=== PATIENT | male | born 1970 | race Caucasian/White ===

== ENCOUNTER 2018-09-09 14:04 | Observation (INO) | payer OTHER ==
[~2018-09-09] VITALS: Ht 177.8 cm; Wt 96.2 kg
[2018-09-09] MEDS ORDERED: SODIUM CHLORIDE 0.9% 1000ML 1,000 ML IV STA (14:34)
--- NOTE | 2018-09-09 14:34 | Diagnostic Imaging Report ---
History: Rule out stroke Comparison studies: None Technique: Axial images were obtained from the skull base to the vertex. Coronal and sagittal reconstructions obtained from the axial data. Dose modulation, iterative reconstruction, and/or weight based adjustment of the mA/kV was utilized to reduce the radiation dose to as low as reasonably achievable. Findings: Scalp/skull: No abnormalities. No fractures, blastic or lytic lesions. Extra-axial spaces: No masses. No fluid collections. Brain sulci: Appropriate for age. Ventricles: Normal in size and configuration. No hydrocephalus. Parenchyma: No abnormal densities. No masses, hemorrhage, acute or chronic cortical vascular insults. Sellar/suprasellar region: No abnormalities Craniocervical junction: Patent foramen magnum. No Chiari one malformation. IMPRESSION: No abnormalities . Signed by: DR Nathan Mas M.D. on 09/09/2018 2:31 PM
[2018-09-09 14:46] LABS: BASOPHILS # (AUTO) 0.1 (0.0-0.1); BASOPHILS % 0.6 % (0.0-1.0); EOSINOPHILS # (AUTO) 0.1 (0.0-0.4); EOSINOPHILS % 0.8 % (0.0-6.0); HEMATOCRIT 43.4 % (38.2-49.6); HEMOGLOBIN 15.5 g/dL (14.0-18.0); LYMPHOCYTES # (AUTO) 2.4 (1.0-3.2); LYMPHOCYTES % 28.6 % (18.0-39.1); MEAN CORPUSCULAR HEMOGLOBIN 31.6 pg (28-32); MEAN CORPUSCULAR HGB CONC 35.7 g/dL (31-35); MEAN CORPUSCULAR VOLUME 88.4 fL (81-99); MONOCYTES # (AUTO) 0.5 (0.2-0.8); MONOCYTES % 5.8 % (4.4-11.3); NEUTROPHILS # (AUTO) 5.2 (2.1-6.9); NEUTROPHILS % 63.7 % (38.7-80.0); PLATELET COUNT 247 x10e3/uL (140-360); RED BLOOD COUNT 4.91 x10e6/uL (4.3-5.7); RED CELL DISTRIBUTION WIDTH 14.3 % (11.7-14.4)
[2018-09-09 15:06] LABS: INR 0.88; PROTHROMBIN TIME 12.8 seconds (11.9-14.5)
[2018-09-09 15:07] LABS: PARTIAL THROMBOPLASTIN TIME 27.3 seconds (23.8-35.5)
[2018-09-09 15:16] LABS: ALANINE AMINOTRANSFERASE 26 IU/L (0-55); ALBUMIN 4.1 g/dL (3.5-5.0); ALBUMIN/GLOBULIN RATIO 1.3 (0.8-2.0); ALKALINE PHOSPHATASE 75 IU/L (40-150); ANION GAP 18.9 mmol/L (8-16); BLOOD UREA NITROGEN 11 mg/dL (7-26); BUN/CREATININE RATIO 12 (6-25); CARBON DIOXIDE 20 mmol/L (22-29); CHLORIDE 99 mmol/L (98-107); CREATINE KINASE 77 IU/L (30-200); EST GLOMERULAR FILTRATION RATE > 60 ML/MIN (60-); GLUCOSE 95 mg/dL (74-118); POTASSIUM 3.9 mmol/L (3.5-5.1); SODIUM 134 mmol/L (136-145)
[2018-09-09 15:32] LABS: CLARITY,URINE CLEAR (CLEAR); COLOR,URINE YELLOW (YELLOW); LEUKOCYTE ESTERASE ,URINE NEGATIVE (NEGATIVE); NITRITE,URINE NEGATIVE (NEGATIVE); PROTEIN,URINE DIPSTICK NEGATIVE (NEGATIVE)
[2018-09-09 15:33] LABS: BILIRUBIN,URINE NEGATIVE (NEGATIVE); KETONES,URINE NEGATIVE (NEGATIVE); URINE UROBILINOGEN 0.2 mg/dL (0.2 - 1)
[2018-09-09 15:43] LABS: AMORPHOUS SEDIMENT,URINE FEW (FEW); EPITHELIAL CELLS,URINE RARE /LPF
[2018-09-09] MEDS ORDERED: ONDANSETRON HCL INJ 2MG/ML 2ML 2 MG/ML VIAL IV PRN (16:00)
--- NOTE | 2018-09-09 16:05 | Diagnostic Imaging Report ---
EXAMINATION: CHEST SINGLE (PORTABLE) INDICATION: Status post possible stroke. COMPARISON: None FINDINGS: TUBES and LINES: None. LUNGS: Low lung volumes. There is no evidence of pneumonia or pulmonary edema. Minimal patchy left basilar opacity, likely atelectasis. PLEURA: No pleural effusion or pneumothorax. HEART AND MEDIASTINUM: The cardiomediastinal silhouette is unremarkable. BONES AND SOFT TISSUES: No acute osseous lesion. Soft tissues are unremarkable. UPPER ABDOMEN: No free air under the diaphragm. IMPRESSION: No acute radiographic abnormality. Signed by: Dr. Jese Troncoso MD on 09/09/2018 4:02 PM
[2018-09-09] MEDS: SODIUM CHLORIDE 0.9% 1000ML 1,000 ML IV SCH ×2 (16:19→23:56)
--- OUTSIDE RECORDS SUMMARY | 2018-09-09 16:20 | XMS REPORT ---
Author Author [facility] Address Unknown Phone Unavailable Care Team Providers Care Production Foreman Name Role Phone Calli RAI Unavailable Unavailable Problems This patient has no known problems. Allergies, Adverse Reactions, Alerts This patient has no known allergies or adverse reactions. Medications This patient has no known medications. Results Test Description Test Time Test Comments Text Results Atomic Results Result Comments CHEST SINGLE (PORTABLE) 2018-09-09 16:00:00 [place] [address] Patient Name: AMY MORA MR #: [id number] : 1970 Age/Sex: 48/M Req #: [id number] Adm Physician: Ordered by: RENETTA LARIOS TRASH MAN Report #: [id number] Location: ER Room/Bed: Procedure: [id number] DX/CHEST SINGLE (PORTABLE) Exam Date: 09/09/18 Exam Time: 1511 REPORT STATUS: Signed EXAMINATION: CHEST SINGLE (PORTABLE) INDICATION: Status post possible stroke. COMPARISON: None FINDINGS: TUBES and LINES: None. LUNGS: Low lung volumes. There is no evidence of pneumonia or pulmonary edema. Minimal patchy left basilar opacity, likely atelectasis. PLEURA: No pleural effusion or pneumothorax. HEART AND MEDIASTINUM: The cardiomediastinal silhouette is unremarkable. BONES AND SOFT TISSUES: No acute osseous lesion. Soft tissues are unremarkable. UPPER ABDOMEN: No free air under the diaphragm. IMPRESSION: No acute radiographic abnormality. Signed by: Dr. Milena Platt MD on 09/09/2018 4:02 PM Dictated By: MILENA PLATT MD 01 Transcribed By: GRETTA on 09/09/181601 COPY TO: RENETTA LARIOS NP CT BRAIN WO 2018-09-09 14:29:00 [place] [address] Patient Name: AMY MORA MR #: [id number] : 1970 Age/Sex: 48/M Req #: [id number] Adm Physician: Ordered by: ARNOL RAI MD Report #: [id number] Location: ER Room/Bed: Procedure: [id number] CT/CT BRAIN WO Exam Date: 09/09/18 Exam Time: 1400 REPORT STATUS: Signed History: Rule out stroke Comparison studies: None Technique: Axial images were obtained from the skull base to the vertex. Coronal and sagittal reconstructions obtained from the axial data. Dose modulation, iterative reconstruction, and/or weight based adjustment of the mA/kV was utilized to reduce the radiation dose to as low as reasonably achievable. Findings: Scalp/skull: No abnormalities. No fractures, blastic or lytic lesions. Extra-axial spaces: No masses. No fluid collections. Brain sulci: Appropriate for age. Ventricles: Normal in size and configuration. No hydrocephalus. Parenchyma: No abnormal densities. No masses, hemorrhage, acute or chronic cortical vascular insults. Sellar/suprasellar region: No abnormalities Craniocervical junction: Patent foramen magnum. No Chiari one malformation. IMPRESSION: No abnormalities . Signed by: DR Nathan Mas M.D. on 09/09/2018 2:31 PM Dictated By: NATHAN MAGUIRE MD [id number] Transcribed By: GRETTA on 09/09/18 1431 COPY TO: ARNOL RAI MD
[2018-09-09 16:42] LABS: CHOL/HDL RATIO 3.5 (3.9-4.7)
[2018-09-09] MEDS ORDERED: ACETAMINOPHEN 325 MG TAB PO ONE (17:45)
[2018-09-09 18:09] VITALS: BP 143/74
[2018-09-09 18:21] VITALS: BP 143/74
[2018-09-09 18:28] VITALS: BP 143/74
--- NOTE | 2018-09-09 18:38 | NUR ---
patient received from er via stretcher. see admit assess. no deficits or signs of stroke present on admission. ns @ 125cc/hr. family at BS. vitals stable with no distress at this time. Dr Sequeira here to see patient.
--- NOTE | 2018-09-09 19:10 | NUR ---
Report received and walking rounds complete. Pt resting in bed and in no apparent distress. All safety measures ensured and pt call jay near.
[2018-09-09 20:00] VITALS: BP_SYST 140; BP_SYST 143; BP_DIAS 74; BP_DIAS 84
--- NOTE | 2018-09-09 21:52 | NUR ---
Pt c/o tingling in hands and feet. Pt is very concern and visibly upset worrying about rather he is going to have an actually stoke. Pt was assessed and performed neuro checks, and vitals taken, which were normal. Explained to about CVA/TIA and informed pt that a Neuro MD has been consult to see him. Advised pt to inform me of any other symptoms he may experience and will continue to monitor pt.
--- NOTE | 2018-09-09 21:52 | NUR ---
Pt also complained of feeling nauseous. Zofran 4mg IV given, pt tolerated well.
[2018-09-10] VITALS (7 sets, daily range): BP systolic 129–139; BP diastolic 62–80
[2018-09-10 04:55] LABS: BASOPHILS # (AUTO) 0.1 (0.0-0.1); BASOPHILS % 0.9 % (0.0-1.0); EOSINOPHILS # (AUTO) 0.3 (0.0-0.4); EOSINOPHILS % 3.3 % (0.0-6.0); HEMOGLOBIN 14.4 g/dL (14.0-18.0); LYMPHOCYTES # (AUTO) 3.3 (1.0-3.2); MEAN CORPUSCULAR HEMOGLOBIN 30.9 pg (28-32); MEAN CORPUSCULAR HGB CONC 34.3 g/dL (31-35); MEAN CORPUSCULAR VOLUME 90.1 fL (81-99); MONOCYTES # (AUTO) 0.5 (0.2-0.8); MONOCYTES % 6.6 % (4.4-11.3); NEUTROPHILS # (AUTO) 3.8 (2.1-6.9); NEUTROPHILS % 47.9 % (38.7-80.0); PLATELET COUNT 211 x10e3/uL (140-360); RED BLOOD COUNT 4.66 x10e6/uL (4.3-5.7); RED CELL DISTRIBUTION WIDTH 14.4 % (11.7-14.4)
[2018-09-10 05:17] LABS: ANION GAP 14.3 mmol/L (8-16); BLOOD UREA NITROGEN 10 mg/dL (7-26); BUN/CREATININE RATIO 11 (6-25); CALCIUM 8.9 mg/dL (8.4-10.2); CARBON DIOXIDE 26 mmol/L (22-29); CHLORIDE 102 mmol/L (98-107); CREATININE, SERUM 0.93 mg/dL (0.72-1.25); EST GLOMERULAR FILTRATION RATE > 60 ML/MIN (60-); GLUCOSE 94 mg/dL (74-118); POTASSIUM 4.3 mmol/L (3.5-5.1); SODIUM 138 mmol/L (136-145)
--- NOTE | 2018-09-10 06:54 | Diagnostic Imaging Report ---
CHEST SINGLE (PORTABLE), 09/10/2018 7:00 AM Technique: CHEST SINGLE (PORTABLE) Comparison: Previous day Clinical history:. Neurological status change Findings: Low lung volumes. Stable portable appearance of the heart, mediastinum, lungs and pleural spaces. Impression: 1. Lines/Tubes: None 2. No acute abnormality. Signed by: Dr Cheyenne Watson MD on 09/10/2018 6:51 AM
--- NOTE | 2018-09-10 07:10 | NUR ---
Report given to day shift nurse and walking rounds complete.
--- NOTE | 2018-09-10 07:45 | NUR ---
patient sitting up in bed, denies any pain no distress noted
[2018-09-10] MEDS: SODIUM CHLORIDE 0.9% 1000ML 1,000 ML IV SCH (08:10)
[2018-09-10] MEDS ORDERED: DOXYCYCLINE HY100 MG PO (08:14)
[2018-09-10] MEDS ORDERED: LEVITRA10 MG PO (08:14)
[2018-09-10] MEDS ORDERED: ADDERALL 30 MG30 MG PO (08:14)
[2018-09-10] MEDS ORDERED: ATORVASTATIN CA20 MG PO (08:14)
[2018-09-10] MEDS ORDERED: VITAMIN D1000 UNI1 PO (08:14)
[2018-09-10] MEDS ORDERED: PANTOPRAZOLE SO40 MG PO (08:14)
[2018-09-10] MEDS ORDERED: ZOLOFT50 MG PO (08:14)
[2018-09-10] MEDS: SERTRALINE HCL 50 MG TAB PO SCH (11:00)
[2018-09-10] MEDS: PANTOPRAZOLE SOD 40 MG TABEC PO SCH (11:00)
[2018-09-10] MEDS: CHOLECALCIFEROL 1,000 UNIT TAB PO SCH (11:00)
--- NOTE | 2018-09-10 11:19 | NUR ---
patient off the unit for MRI, stable
[2018-09-10] MEDS: DOXYCYCLINE HYCLATE TABLET 100 MG TAB PO SCH ×2 (12:00→21:07)
--- NOTE | 2018-09-10 13:56 | Diagnostic Imaging Report ---
EXAMINATION: MRI of the brain without contrast. HISTORY: Left-sided weakness, CVA, tingling sensation and numbness in the upper extremities/hands, slurred speech with left-sided drooping since yesterday. TIA COMPARISON: Head CT on 09/09/2018 TECHNIQUE: Sagittal T2; axial DWI, T2, FLAIR, T1-IR, T2 gradient echo; coronal FLAIR. IMAGE QUALITY: Adequate. FINDINGS: Parenchyma: 1. No abnormal signal intensity 2. No mass, hemorrhage, acute or chronic infarcts. Skull: Unremarkable. Vessels: Expected flow voids present in the major arteries and dural sinuses. Extra-axial spaces: No abnormal signal intensity or mass effect. Brain volume: Within normal limits for age. Ventricles: No hydrocephalus or displacement. Foramen magnum: Unremarkable. Sella: Unremarkable. Paranasal / mastoid sinuses: No significant inflammatory disease. IMPRESSION: No intracranial abnormalities, particularly no acute or chronic infarcts. Signed by: Dr. Carly Callahan M.D. on 09/10/2018 1:52 PM
--- NOTE | 2018-09-10 18:20 | NUR ---
patient resting in bed, Dr Levy had rounds, not in any distress noted
--- NOTE | 2018-09-10 19:03 | Consultation ---
DATE OF CONSULTATION: September 10, 2018 NEUROLOGY CONSULT NOTE HISTORY OF PRESENT ILLNESS: Mr. Walters is a 48-year-old right hand dominant man with past medical history significant for hyperlipidemia/dyslipidemia and tobacco use, admitted to [facility] on September 09, 2018, with a probable transient ischemic attack. In the early childhood associate on September 09, 2018, the patient experienced a sudden onset of a cold sensation over the fingertips of the left hand as well as a bluish purplish discoloration at the distal interphalangeal joints of the left hand. These symptoms persisted for a few minutes, then spontaneously resolved. At approximately noon, on September 09, 2018, the above described symptoms recurred, persisted for a few minutes, then spontaneously resolved. At 1354 on September 09, 2018, patient once again experienced a recurrence of the above described symptoms. However, in addition to these symptoms, the patient noted tingling of the left arm, slurred speech, possible expressive aphasia, as well as left facial droop. Mr. Walters informed a coworker of his symptoms and asked to be brought to the nearest emergency center for further evaluation. Upon arrival in the emergency center at [facility], the patient had a temperature of 100.2 degrees Fahrenheit, a blood pressure of 138/99 mmHg, and a pulse of 99 beats per minute. Upon initial neurological examination, Mr. Walters was noted to have dysarthria as well as left hemiparesis affecting the face and arm. Diminished sensation over the left side of the face and left arm was noted as well; however, these symptoms significantly improved while the patient was in the emergency center. According to the patient, the above described symptoms persisted for approximately 60 minutes prior to spontaneous resolution. While in the emergency center, a CT of the brain without contrast was performed. This study did not show evidence of recent large territorial ischemia or hemorrhage. There was no hyperdensity seen in any of the major intracranial blood vessels. Mr. Walters was then admitted to [facility] under observation status for further evaluation and treatment of a probable transient ischemic attack. Mr. Walters does not report experiencing similar symptoms previously. The patient does not take antiplatelet or anticoagulant medication at home. REVIEW OF SYSTEMS: Palpitations, dysarthria, possible expressive aphasia, left facial weakness, numbness over the left side of the face and left arm, cold sensation over the fingertips of the left hand, bluish/purplish discoloration of the proximal interphalangeal joints of left hand. Otherwise, the 12 point review of systems is negative. PAST MEDICAL HISTORY: Hyperlipidemia/dyslipidemia, Raynaud's phenomenon, gastroesophageal reflux disease, anxiety disorder, attention deficit disorder, headaches, diverticulitis, and questionable peripheral vascular disease. PAST SURGICAL HISTORY: Esophagogastroduodenoscopy/colonoscopy in September 2017, appendectomy, right hand reconstruction. PAST HOSPITALIZATIONS: Surgeries/procedures as listed, diverticulitis. FAMILY MEDICAL HISTORY: Mr. Walters is adopted. He does not know any of his family medical history. SOCIAL HISTORY: The patient is . He works as a power generating plant operator. Mr. Walters endorses tobacco use. He has smoked cigarettes or cigars for approximately 20+ years. The patient reports daily alcohol use. He does not report current or prior recreational drug use. HOME MEDICATIONS: Adderall 30 mg by mouth daily, atorvastatin 20 mg by mouth at bedtime daily, vitamin D3 of 5000 units by mouth daily, doxycycline 100 mg by mouth twice daily, Protonix 40 mg by mouth daily, sertraline 150 mg by mouth daily (not taking), Levitra 10 mg by mouth as needed. ALLERGIES: NO KNOWN DRUG ALLERGIES. NO KNOWN FOOD ALLERGIES. NO KNOWN ALLERGIES TO LATEX. PATIENT DOES HAVE A DOCUMENTED IODINE ALLERGY. PHYSICAL EXAMINATION VITAL SIGNS: Height 70 inches, weight 213 pounds, BMI 30.6 kg per meter squared. Blood pressure 139/62 mmHg, pulse 83 beats per minute, respiratory rate 18 breaths per minute, oxygen saturation 96% on room air. GENERAL: The patient is awake and alert, does not appear distressed. Overweight. HEENT: Normocephalic, atraumatic. Pupils are equal, round, and reactive to light. Moist mucous membranes. NECK: Supple. No appreciable thyromegaly. No appreciable carotid bruits. CARDIOVASCULAR: S1, S2, regular rate and rhythm. No murmurs, rubs, or gallops. RESPIRATORY: Clear to auscultation bilaterally. No wheezes, rhonchi, or rales. EXTREMITIES: The skin is warm and dry. No clubbing, cyanosis, or edema. The posterior tibial and dorsalis pedis pulses are 2+ and symmetric. SKIN: No rashes or lesions. NEUROLOGIC Memory/Attention: The patient is awake and alert, oriented to person, place, time, and situation. Cranial Nerves: Cranial nerve I - Not tested. Cranial nerve II, III, IV, and - Pupils are equal and round, react briskly to light (from 4 mm to 2 mm). Extraocular movements intact. No nystagmus. Cranial nerve V - Sensation to light touch and pinprick is intact in the bilateral V1 through V3 distributions. Strength of the temporalis and masseter muscles is within normal limits. Cranial nerve VII - The face is symmetric as are all facial movements. Strength is within normal limits. Cranial nerve VIII - Hearing is intact to finger rub bilaterally. Cranial nerve IX, X - The soft palate elevates equally and symmetrically. Cranial nerve XI - Normal strength of the bilateral sternocleidomastoid and trapezius muscles. Cranial nerve XII - The tongue protrudes midline and moves symmetrically from side to side. Strength: Bulk is normal. Strength is 5/5 in the bilateral deltoids, biceps, triceps, wrist flexors and extensors, finger flexors and extensors, intrinsic hand muscles, hip flexors, knee flexors and extensors, ankle dorsiflexion and plantar flexion, and intrinsic foot muscles. Tone is normal. DTRs: Deep tendon reflexes are 2+ and symmetric at the triceps, biceps, brachioradialis, patellas, and Achilles. Plantar responses are flexor bilaterally. Sensation: Sensation is intact to light touch and pinprick in both arms and both legs. Cerebellar: Dchjad-upzo-rqnmgw and heel-chavarria movements are intact without dysmetria or other impairment. Gait: Deferred. Speech: Spontaneous speech is normal without appreciable dysarthria or aphasia. Repetition is intact. Involuntary Movements: None. Pronator Drift: None. LABORATORY DATA: The most recent basic metabolic panel is unremarkable. A liver function profile collected on September 09, 2018 is unremarkable. Cardiac enzymes are negative x1. Lactic acid 24.3. Total cholesterol 184, triglycerides 115, LDL cholesterol 108, HDL cholesterol 53. The CBC with differential and platelets is significant for white blood cell count of 7.97 with a right shift, 47.9% neutrophils, 41.0% lymphocytes, 6.6% monocytes, 3.3% eosinophils, and 0.9% basophils. The hemoglobin and hematocrit are 14.4 and 42.0, respectively. The platelet count is 211. The coagulation profile is within normal limits. A urinalysis is significant only for a specific gravity of 1.005. Blood cultures collected on September 09, 2018 reveals no growth after 24 hours. DIAGNOSTIC STUDIES: CT of the brain without contrast, September 09, 2018: On my review, there is no evidence of recent large territorial ischemia, hemorrhage, mass, or mass effect. Cerebral volumes are appropriate for age. There are no findings suggestive of chronic small vessel ischemic disease. Chest x-ray, September 09, 2018: No acute radiographic abnormality. Electrocardiogram, September 10, 2018: Sinus rhythm at 83 beats per minute with occasional premature ventricular complexes. Echocardiogram, September 10, 2018: Ejection fraction 65%. Concentric left ventricular hypertrophy. Bilateral carotid artery ultrasound with Doppler, September 10, 2018: Results pending. MRI of the brain without contrast, September 10, 2018: On my review, there is no evidence of recent or remote large territorial ischemia, hemorrhage, mass, or mass effect. Cerebral volumes are appropriate for age. There are no findings compatible with chronic small vessel ischemic disease. Chest x-ray, September 10, 2018: 1. Lines/tubes: None. 2. No acute abnormality. ASSESSMENT AND PLAN: Mr. Walters is a 48-year-old right hand dominant man with past medical history significant for hyperlipidemia/dyslipidemia and tobacco use, admitted to [facility] on September 09, 2018 with a transient ischemic attack. At present, the patient's neurological examination is nonfocal. His laboratory data and other diagnostic studies have been reviewed and are documented above. RECOMMENDATIONS 1. A hemoglobin A1c will be ordered to complete a stroke evaluation. 2. Follow up the results of the bilateral carotid artery ultrasound with Doppler. 3. Treatment with aspirin 81 mg by mouth daily for stroke prophylaxis will be prescribed. 4. The patient's goal blood pressure is less than 140/90 mmHg. At present, the patient's blood pressures are at goal. Monitor vital signs per unit protocol. 5. The patient's goal total cholesterol is less than 200 with a LDL of less than 70. Mr. Walters's LDL is approximately 40 above goal. The dose of his home medication of Lipitor will be increased to 40 mg by mouth at bedtime daily. 6. The patient's goal hemoglobin A1c is less than 7.0. Follow up the results of the hemoglobin A1c. Tight glycemic control is recommended while the patient is in the hospital. 7. Speech and physical therapy consultations will be deferred as the patient has no current neurological deficits. 8. GI prophylaxis with Protonix 40 mg by mouth daily. DVT prophylaxis with Lovenox 40 mg subcutaneously daily. 9. Smoking cessation counseling was provided to the patient. 10. Defer treatment of the remaining medical comorbidities to the primary and other services following the patient. Thank you for this consultation. I will continue to follow the patient while he remains in the hospital. TIME SPENT: 70 minutes. Job#: [id number] NENAU MTDElvi
[2018-09-10] MEDS ORDERED: ATORVASTATIN 20 MG TAB PO SCH ×2 (21:00)
[2018-09-10] MEDS ORDERED: ATORVASTATIN 40 MG TAB PO SCH (21:00)
--- NOTE | 2018-09-10 21:50 | NUR ---
Patient ambulating in the kahn, no distress noted. He denies pain. Call light within reach and told to call for assistance.
[2018-09-11 00:50] VITALS: BP 105/56
--- NOTE | 2018-09-11 01:20 | NUR ---
Patient is asleep, easy to arouse, no distress observed.
[2018-09-11 04:30] VITALS: BP 105/71
--- NOTE | 2018-09-11 05:59 | NUR ---
Patient is asleep, no distress noted.
--- NOTE | 2018-09-11 07:22 | NUR ---
patient resting in bed, AAOx3, Denies any pain this time, not in any distress, call light in reach, encouraged to call for any assistance
[2018-09-11 07:45] VITALS: BP 124/70
[2018-09-11] MEDS: SODIUM CHLORIDE 0.9% 1000ML 1,000 ML IV SCH (07:56)
[2018-09-11] MEDS: PANTOPRAZOLE SOD 40 MG TABEC PO SCH (08:28)
[2018-09-11] MEDS: SERTRALINE HCL 50 MG TAB PO SCH (08:29)
[2018-09-11] MEDS: CHOLECALCIFEROL 1,000 UNIT TAB PO SCH (08:29)
[2018-09-11] MEDS: DOXYCYCLINE HYCLATE TABLET 100 MG TAB PO SCH (08:29)
[2018-09-11] MEDS ORDERED: D AMPHET PO SCH (09:00)
[2018-09-11] MEDS ORDERED: AMPHET ASP PO SCH (09:00)
[2018-09-11] MEDS ORDERED: ASPIRIN 81 MG ENTERIC COATED PO SCH (09:00)
[2018-09-11] MEDS ORDERED: AMPHET PO SCH (09:00)
[2018-09-11 10:18] VITALS: BP 124/70
[2018-09-11 11:54] VITALS: BP 120/79
[2018-09-11] MEDS ORDERED: ASPIR 8181 MG PO (12:12)
--- NOTE | 2018-09-11 12:27 | NUR ---
Dr Levy and DR Ledezma had rounds patient discharged home, Alert with no distress, prescription given, patient aware about f/up with Dr Levy, IV canula removed with tip intact, no ss of infiltration noted, refused wheelchair , escorted to walk to front lobby, denies any pain, no distress noted.
--- NOTE | 2018-09-11 12:58 | Discharge Summary ---
ADMITTING DIAGNOSES 1. Transient ischemic attack. 2. Hyperlipidemia. 3. Tobacco abuse. DISCHARGE DIAGNOSES 1. Transient ischemic attack, resolved. 2. Hyperlipidemia. 3. Tobacco abuse. HOSPITAL COURSE: This is a 48-year-old white male who was initially admitted to [facility] with diagnosis of transient ischemic attack. The patient underwent a CT of the brain on admission, which was unremarkable. The patient subsequently underwent MRI of the brain that did not reveal any acute or chronic infracts. The patient was seen by a neurologist, namely Dr. Wendy Levy, who stated that the patient did have transient ischemic attack. The patient's hospitalization was unremarkable. During this hospitalization, he was found to have an LDL cholesterol of 108 mg/dL. He does have a history of hyperlipidemia and he does take atorvastatin 20 mg at night at home. The neurology recommended that patient start aspirin therapy 81 mg daily and that he increase his atorvastatin from 20 to 40 mg every night. Tobacco cessation is highly recommended to the patient. CONDITION ON DISCHARGE: Stable. DISCHARGE MEDICATIONS 1. Adderall 40 mg a day. 2. Atorvastatin 40 mg q.h.s. 3. Vitamin D3 5000 units daily. 4. Pantoprazole 40 mg daily. 5. Sertraline 150 mg daily. 6. Levitra 10 mg once daily as needed. FOLLOWUP INSTRUCTIONS: The patient is instructed to followup with his primary care physician, namely Dr. López within [address] Wendy Levy in 2 weeks. Tobacco cessation is highly recommended to the patient. ALEXANDRA LABOY MD Job#: [id number] SONIDO
[2018-09-11] MEDS ORDERED: ENOXAPARIN SOD INJ 40 MG/0.4 ML SYR SC SCH (17:00)
== END 2018-09-11 12:28 | disposition home or self-care (01) ==
LOC: ER 14:04 → ERHOLD 16:15 → IMCU 17:58
DX: G45.9 Transient cerebral ischemic attack, unspecified (principal); E78.00 Pure hypercholesterolemia, unspecified; Z91.048 Other nonmedicinal substance allergy status; Z82.49 Family history of ischemic heart disease and other diseases of the circulatory system; F98.8 Other specified behavioral and emotional disorders with onset usually occurring in childhood and adolescence; Z72.0 Tobacco use; I73.00 Raynaud's syndrome without gangrene
CPT/HCPCS: 36415 ×2; 70450; 70551; 71045 ×2; 80048; 80053; 80061; 81001; 82550; 82553; 82948; 83036; 83605; 84484; 85025 ×2; 85610; 85730; 87040; 93005 ×2; 93306; 93880; 96360; 96361; 99284; 99285; G0378 ×3; J2405; J7030 ×2; S0164

== ENCOUNTER → 2018-09-14 | Emergency (ER) | payer OTHER ==
[~2018-09-14] MED LIST: ADDERALL 30 MG30 MG PO; ASPIR 8181 MG PO; ATORVASTATIN CA20 MG PO; DOXYCYCLINE HY100 MG PO; LEVITRA10 MG PO; PANTOPRAZOLE SO40 MG PO; VITAMIN D1000 UNI1 PO; ZOLOFT50 MG PO
== END | disposition left against medical advice (07) ==
LOC: ER 17:58
DX: R69 Illness, unspecified (principal)

== ENCOUNTER 2020-11-13 20:34 | Emergency (ER) | payer OTHER ==
[~2020-11-13] VITALS: Ht 177.8 cm; Wt 96.2 kg
[2020-11-13] MEDS ORDERED: ONDANSETRON HCL INJ 2MG/ML 2ML 2 MG/ML VIAL IV STA (20:50)
[2020-11-13] MEDS ORDERED: MORPHINE SULFATE INJ 4 MG/ML INJ 1ML IV PRN (21:00)
[2020-11-13] MEDS ORDERED: SODIUM CHLORIDE 0.9% 1000ML 1,000 ML IV SCH (21:00)
[2020-11-13] MEDS ORDERED: DIATRIZOATE MEGL/DIATRIZOA SOD 30 ML BTL PO ONE (21:07)
[2020-11-13 21:15] LABS: BASOPHILS # (AUTO) 0.1 (0.0-0.1); BASOPHILS % 0.9 % (0.0-1.0); EOSINOPHILS # (AUTO) 0.2 (0.0-0.4); EOSINOPHILS % 2.2 % (0.0-6.0); HEMATOCRIT 47.1 % (38.2-49.6); HEMOGLOBIN 16.4 g/dL (14.0-18.0); LYMPHOCYTES % 29.2 % (18.0-39.1); MEAN CORPUSCULAR HEMOGLOBIN 31.4 pg (28-32); MEAN CORPUSCULAR HGB CONC 34.8 g/dL (31-35); MEAN CORPUSCULAR VOLUME 90.1 fL (81-99); MONOCYTES # (AUTO) 0.9 (0.2-0.8); MONOCYTES % 8.6 % (4.4-11.3); NEUTROPHILS % 58.6 % (38.7-80.0); PLATELET COUNT 239 x10e3/uL (140-360); RED BLOOD COUNT 5.23 x10e6/uL (4.3-5.7); RED CELL DISTRIBUTION WIDTH 14.1 % (11.7-14.4)
[2020-11-13] MEDS ORDERED: METHYLPREDNISOLONE SOD SUCC 125 MG/2ML VIAL IV ONE (21:30)
[2020-11-13] MEDS ORDERED: DIPHENHYDRAMINE HCL INJ 50 MG/ML VIAL IV ONE (21:30)
[2020-11-13 21:33] LABS: ALANINE AMINOTRANSFERASE 31 IU/L (0-55); ALKALINE PHOSPHATASE 85 IU/L (40-150); BLOOD UREA NITROGEN 13 mg/dL (7-26); BUN/CREATININE RATIO 15 (6-25); CALCIUM 8.7 mg/dL (8.4-10.2); CARBON DIOXIDE 22 mmol/L (22-29); CHLORIDE 98 mmol/L (98-107); CREATINE KINASE 198 IU/L (30-200); CREATININE, SERUM 0.87 mg/dL (0.72-1.25); EST GLOMERULAR FILTRATION RATE > 60 ML/MIN (60-); GLUCOSE 90 mg/dL (74-118); SODIUM 133 mmol/L (136-145)
[2020-11-13] MEDS ORDERED: SODIUM CHLORIDE 0.9% 50ML 50 ML ONE (21:56)
[2020-11-13] MEDS ORDERED: IOPAMIDOL 370 MG/ML 200 ML INFUS..BTL INJ ONE (21:56)
[2020-11-13 23:04] LABS: AMPHETAMINES SCREEN,URINE POSITIVE (NEGATIVE); BENZODIAZEPINES SCREEN,URINE NEGATIVE (NEGATIVE); CLARITY,URINE CLEAR (CLEAR); COLOR,URINE YELLOW (YELLOW); KETONES,URINE NEGATIVE (NEGATIVE); LEUKOCYTE ESTERASE ,URINE NEGATIVE (NEGATIVE); NITRITE,URINE NEGATIVE (NEGATIVE); PHENCYCLIDINE SCREEN,URINE NEGATIVE (NEGATIVE); PROTEIN,URINE DIPSTICK NEGATIVE (NEGATIVE); URINE UROBILINOGEN 0.2 mg/dL (0.2 - 1)
[2020-11-13 23:07] LABS: BACTERIA,URINE RARE /HPF; EPITHELIAL CELLS,URINE RARE /LPF; RBC,URINE 0-5 /HPF (0-5); WBC,URINE (MAN) 0-5 /HPF (0-5)
[2020-11-13] MEDS ORDERED: KETOROLAC TROMETHAMINE 30 MG/ML VIAL IV STA (23:34)
[2020-11-14] MEDS ORDERED: PANTOPRAZOLE SO40 MG PO (00:34)
[2020-11-14] MEDS ORDERED: CIPRO250 MG PO (00:34)
[2020-11-14] MEDS ORDERED: DICYCLOMINE HCL10 MG PO (00:34)
[2020-11-14] MEDS ORDERED: FLAGYL500 MG PO (00:34)
[2020-11-14] MEDS ORDERED: ZOFRAN4 MG SL (00:34)
[2020-11-14] MEDS ORDERED: ULTRAM 50MG50 MG PO (00:34)
[2020-11-14] MEDS ORDERED: HYDROCODONE/APAP 10MG-325MG TAB PO ONE (00:45)
[2020-11-14 01:28] VITALS: BP 145/92
== END 2020-11-14 01:32 | disposition home or self-care (01) ==
LOC: ER 20:41
DX: R10.32 Left lower quadrant pain (principal); R19.7 Diarrhea, unspecified; K57.30 Diverticulosis of large intestine without perforation or abscess without bleeding; I77.811 Abdominal aortic ectasia; G40.909 Epilepsy, unspecified, not intractable, without status epilepticus; K21.9 Gastro-esophageal reflux disease without esophagitis; K76.0 Fatty (change of) liver, not elsewhere classified; E78.5 Hyperlipidemia, unspecified; F98.8 Other specified behavioral and emotional disorders with onset usually occurring in childhood and adolescence
CPT/HCPCS: 36415; 74177; 80053; 80307; 81001; 82550; 82553; 83690; 84484; 85025; 99284; J1200; J1885; J2270; J2405; J2930; J7030; Q9967

== ENCOUNTER 2021-08-14 22:42 | Observation (INO) | payer OTHER ==
[~2021-08-14] VITALS: Ht 177.8 cm; Wt 96.2 kg
[~2021-08-14 22:42] MED LIST changes: +CIPRO250 MG PO; +DICYCLOMINE HCL10 MG PO; +FLAGYL500 MG PO; +ULTRAM 50MG50 MG PO; +ZOFRAN4 MG SL
[2021-08-14 23:23] LABS: BASOPHILS # (AUTO) 0.1 (0.0-0.1); BASOPHILS % 0.7 % (0.0-1.0); EOSINOPHILS # (AUTO) 0.5 (0.0-0.4); EOSINOPHILS % 3.2 % (0.0-6.0); HEMATOCRIT 40.5 % (38.2-49.6); HEMOGLOBIN 13.5 g/dL (14.0-18.0); LYMPHOCYTES # (AUTO) 4.3 (1.0-3.2); LYMPHOCYTES % 28.5 % (18.0-39.1); MEAN CORPUSCULAR HGB CONC 33.3 g/dL (31-35); MEAN CORPUSCULAR VOLUME 92.9 fL (81-99); MONOCYTES % 6.6 % (4.4-11.3); NEUTROPHILS % 60.5 % (38.7-80.0); PLATELET COUNT 279 x10e3/uL (140-360); RED BLOOD COUNT 4.36 x10e6/uL (4.3-5.7); RED CELL DISTRIBUTION WIDTH 14.2 % (11.7-14.4)
[2021-08-14 23:36] LABS: ALANINE AMINOTRANSFERASE 21 IU/L (0-55); ALBUMIN 3.5 g/dL (3.5-5.0); ALKALINE PHOSPHATASE 69 IU/L (40-150); ANION GAP 16.5 mmol/L (8-16); BLOOD UREA NITROGEN 16 mg/dL (7-26); BUN/CREATININE RATIO 19 (6-25); CALCIUM 8.8 mg/dL (8.4-10.2); CARBON DIOXIDE 21 mmol/L (22-29); CHLORIDE 104 mmol/L (98-107); CREATINE KINASE 65 IU/L (30-200); CREATININE, SERUM 0.86 mg/dL (0.72-1.25); EST GLOMERULAR FILTRATION RATE 94 ML/MIN (60-); GLUCOSE 112 mg/dL (74-118); POTASSIUM 3.5 mmol/L (3.5-5.1); SODIUM 138 mmol/L (136-145)
[2021-08-15 00:29] LABS: AMPHETAMINES SCREEN,URINE NEGATIVE (NEGATIVE); PHENCYCLIDINE SCREEN,URINE NEGATIVE (NEGATIVE)
[2021-08-15 00:30] LABS: BENZODIAZEPINES SCREEN,URINE NEGATIVE (NEGATIVE)
[2021-08-15] MEDS ORDERED: ONDANSETRON HCL INJ 2MG/ML 2ML 2 MG/ML VIAL IV PRN (00:45)
[2021-08-15] MEDS ORDERED: Morphine 4mg Syringe 4 MG/ML INJ IV PRN (00:45)
[2021-08-15 07:00] VITALS: BP 117/79
[2021-08-15 07:23] LABS: CREATINE KINASE 61 IU/L (30-200)
[2021-08-15 08:20] VITALS: BP 117/79
[2021-08-15 09:00] VITALS: BP 117/79
[2021-08-15 10:30] VITALS: BP 114/79
[2021-08-15] MEDS ORDERED: SODIUM CHLORIDE 0.9% 1000ML 1,000 ML IV SCH ×3 (11:45→13:00)
[2021-08-15 12:00] VITALS: BP 122/84
[2021-08-15] MEDS ORDERED: HYDROCORTISONE SOD SUCCINATE 100 MG VIAL ONE (12:13)
[2021-08-15] MEDS ORDERED: IOPAMIDOL 370 MG/ML 200 ML INFUS..BTL INJ ONE (12:15)
[2021-08-15] MEDS ORDERED: SODIUM CHLORIDE 0.9% 1000ML 1,000 ML ONE (12:15)
[2021-08-15] MEDS ORDERED: HEPARIN SOD/SOD CHLORIDE 2,000 ML ONE (12:15)
[2021-08-15] MEDS ORDERED: FENTANYL CITRATE/PF 100MCG/2 ML INJ ONE (12:15)
[2021-08-15] MEDS ORDERED: LIDOCAINE HCL 2% LOCAL 20 ML VIAL ONE (12:15)
[2021-08-15] MEDS ORDERED: MIDAZOLAM HCL 2 MG/2 ML VIAL ONE (12:15)
[2021-08-15 14:55] LABS: CREATINE KINASE MB 1.2 ng/mL (0-5.0)
[2021-08-15 16:00] VITALS: BP 119/76
[2021-08-15] MEDS ORDERED: ONDANSETRON HCL 4 MG ORAL DISINTEGRATING TAB PO PRN (18:45)
== END 2021-08-15 22:33 | disposition home or self-care (01) ==
LOC: ER 22:47 → ERHOLD 08-15 00:49 → MED/SURG2 08-15 10:32
PROVIDERS: ADMIT Family Medicine; ATTEND Family Medicine
DX: I20.0 Unstable angina (principal); Z91.041 Radiographic dye allergy status; Z91.048 Other nonmedicinal substance allergy status; I10 Essential (primary) hypertension; E78.5 Hyperlipidemia, unspecified; G40.909 Epilepsy, unspecified, not intractable, without status epilepticus; Z72.0 Tobacco use; F98.8 Other specified behavioral and emotional disorders with onset usually occurring in childhood and adolescence; K21.9 Gastro-esophageal reflux disease without esophagitis; Z20.822 Contact with and (suspected) exposure to COVID-19
CPT/HCPCS: 36415 ×2; 71045; 80053; 80307; 82550 ×2; 82553 ×2; 83690; 83880; 84484 ×2; 85025; 85379; 93005; 93306; 93458; 94799; 99284; C1760; C1766; C1769; C1887; G0378; J1720; J2001; J2250; J3010; J7030; Q9967; U0002; 99152; 99153

== ENCOUNTER 2024-04-07 11:04 | Observation (INO) | payer OTHER ==
[~2024-04-07] VITALS: Ht 177.8 cm; Wt 122.0 kg
[2024-04-07] VITALS (8 sets, daily range): BP systolic 110–119; BP diastolic 66–72; PULSE 70–78; RESP 16–20; TEMP 97.4–98.7; O2SAT 98–100
[2024-04-07] MEDS: SODIUM CHLORIDE 0.9% 1000ML 1,000 ML IV ONE (12:24)
[2024-04-07] MEDS: ONDANSETRON HCL INJ 2MG/ML 2ML 2 MG/ML VIAL IV STA (12:25)
[2024-04-07] MEDS: KETOROLAC TROMETHAMINE 30 MG/ML VIAL IV STA (12:25)
[2024-04-07 12:40] LABS: BASOPHILS # (AUTO) 0.1 (0.0-0.1); BASOPHILS % 0.6 % (0.0-1.0); EOSINOPHILS # (AUTO) 0.1 (0.0-0.4); EOSINOPHILS % 1.2 % (0.0-6.0); HEMATOCRIT 45.3 % (38.2-49.6); HEMOGLOBIN 14.9 g/dL (14.0-18.0); LYMPHOCYTES # (AUTO) 2.4 (1.0-3.2); LYMPHOCYTES % 19.8 % (18.0-39.1); MEAN CORPUSCULAR HEMOGLOBIN 29.8 pg (28-32); MEAN CORPUSCULAR HGB CONC 32.9 g/dL (31-35); MEAN CORPUSCULAR VOLUME 90.6 fL (81-99); MONOCYTES # (AUTO) 1.1 (0.2-0.8); MONOCYTES % 9.1 % (4.4-11.3); NEUTROPHILS # (AUTO) 8.4 (2.1-6.9); NEUTROPHILS % 69.1 % (38.7-80.0); PLATELET COUNT 246 x10e3/uL (140-360); RED CELL DISTRIBUTION WIDTH 14.3 % (11.7-14.4); WHITE BLOOD COUNT 12.09 x10e3/uL (4.8-10.8)
[2024-04-07 13:08] LABS: ALBUMIN 4.2 g/dL (3.5-5.0); ALBUMIN/GLOBULIN RATIO 1.2 (0.8-2.0); ANION GAP 15.8 mmol/L (8-16); CALCIUM 9.2 mg/dL (8.4-10.2); CREATININE, SERUM 1.14 mg/dL (0.72-1.25); POTASSIUM 3.8 mmol/L (3.5-5.1); TOTAL PROTEIN 7.8 g/dL (6.5-8.1)
[2024-04-07 13:34] LABS: BILIRUBIN,URINE NEGATIVE (NEGATIVE); CLARITY,URINE CLEAR (CLEAR); COLOR,URINE YELLOW (YELLOW); GLUCOSE, URINE NEGATIVE (NEGATIVE); KETONES,URINE NEGATIVE (NEGATIVE); LEUKOCYTE ESTERASE ,URINE NEGATIVE (NEGATIVE); NITRITE,URINE NEGATIVE (NEGATIVE); PH,URINE 5.5 (5 - 7); PROTEIN,URINE DIPSTICK NEGATIVE (NEGATIVE); URINE UROBILINOGEN 0.2 mg/dL (0.2 - 1)
[2024-04-07 13:40] LABS: BACTERIA,URINE FEW /HPF; EPITHELIAL CELLS,URINE FEW /LPF; RBC,URINE 0-5 /HPF (0-5); WBC,URINE (MAN) 0-5 /HPF (0-5)
[2024-04-07] MEDS: SODIUM CHLORIDE 0.9% 1000ML 1,000 ML IV SCH (13:49)
[2024-04-07] MEDS: Morphine 4mg INJECTION 4 MG/ML INJ IV PRN (14:17)
[2024-04-07] MEDS ORDERED: TADALAFIL10 MG (15:13)
[2024-04-07] MEDS ORDERED: NIFEDIPINE ER30 M1 PO (15:13)
[2024-04-07] MEDS ORDERED: FLOMAX0.4 MG PO (15:13)
[2024-04-07] MEDS ORDERED: METOPROLOL SUC100 MG (15:13)
[2024-04-07] MEDS ORDERED: HYDRALAZINE HCL 20 MG/ML VIAL IV PRN (18:45)
[2024-04-07] MEDS ORDERED: OZEMPIC0.25 MG/02 SC (20:33)
[2024-04-07] MEDS ORDERED: ZETIA10 MG PO (20:33)
[2024-04-07] MEDS ORDERED: NEXIUM20 MG PO (20:33)
[2024-04-07] MEDS ORDERED: BUPROPION XL300 MG (20:33)
[2024-04-08] VITALS (8 sets, daily range): BP systolic 105–140; BP diastolic 65–77; PULSE 59–76; RESP 16–18; TEMP 97.4–98.4; O2SAT 98–100
[2024-04-08 06:05] LABS: BASOPHILS % 0.5 % (0.0-1.0); EOSINOPHILS # (AUTO) 0.3 (0.0-0.4); HEMOGLOBIN 12.7 g/dL (14.0-18.0); LYMPHOCYTES # (AUTO) 1.9 (1.0-3.2); LYMPHOCYTES % 22.4 % (18.0-39.1); MEAN CORPUSCULAR HEMOGLOBIN 29.6 pg (28-32); MEAN CORPUSCULAR HGB CONC 31.8 g/dL (31-35); MEAN CORPUSCULAR VOLUME 93.2 fL (81-99); MONOCYTES # (AUTO) 0.9 (0.2-0.8); MONOCYTES % 10.5 % (4.4-11.3); NEUTROPHILS # (AUTO) 5.2 (2.1-6.9); NEUTROPHILS % 63.2 % (38.7-80.0); PLATELET COUNT 200 x10e3/uL (140-360); RED BLOOD COUNT 4.29 x10e6/uL (4.3-5.7); RED CELL DISTRIBUTION WIDTH 14.3 % (11.7-14.4); WHITE BLOOD COUNT 8.26 x10e3/uL (4.8-10.8)
[2024-04-08 06:32] LABS: ALBUMIN 3.2 g/dL (3.5-5.0); ALBUMIN/GLOBULIN RATIO 1.1 (0.8-2.0); ANION GAP 11.8 mmol/L (8-16); BILIRUBIN,TOTAL 1.3 mg/dL (0.2-1.2); CALCIUM 8.5 mg/dL (8.4-10.2); CREATININE, SERUM 1.01 mg/dL (0.72-1.25); POTASSIUM 3.8 mmol/L (3.5-5.1); TOTAL PROTEIN 6.1 g/dL (6.5-8.1)
[2024-04-08] MEDS: HYDROMORPHONE 2MG/ML IV PRN (11:52)
[2024-04-08] MEDS: ONDANSETRON HCL INJ 2MG/ML 2ML 2 MG/ML VIAL IV PRN (15:10)
[2024-04-08] MEDS: KETOROLAC TROMETHAMINE 30 MG/ML VIAL IV PRN (15:14)
[2024-04-09 04:00] VITALS: BP 124/68; PULSE 64; RESP 18; TEMP 98; O2SAT 96
[2024-04-09 04:30] VITALS: BP 124/68; PULSE 64; RESP 18; TEMP 98; O2SAT 96
[2024-04-09 08:04] VITALS: BP 135/80; PULSE 64; PULSE 83; RESP 18; RESP 21; TEMP 97.9; TEMP 98; O2SAT 100; O2SAT 97
[2024-04-09] MEDS: SIMETHICONE 80 MG CHEW PO PRN (13:39)
[2024-04-09] MEDS: HYDROMORPHONE 1MG/1ML INJ IV PRN (18:29)
[2024-04-09 21:02] VITALS: BP 126/75; PULSE 67; RESP 16; TEMP 98.3; O2SAT 100
[2024-04-10 01:08] VITALS: BP 125/75; PULSE 66; RESP 18; TEMP 98.1; O2SAT 99
[2024-04-10 04:43] VITALS: BP 114/84; PULSE 68; RESP 18; TEMP 97.6; O2SAT 99
[2024-04-10 05:42] LABS: BASOPHILS # (AUTO) 0.1 (0.0-0.1); BASOPHILS % 0.8 % (0.0-1.0); EOSINOPHILS # (AUTO) 0.3 (0.0-0.4); EOSINOPHILS % 4.4 % (0.0-6.0); HEMOGLOBIN 13.2 g/dL (14.0-18.0); LYMPHOCYTES # (AUTO) 2.6 (1.0-3.2); MEAN CORPUSCULAR HEMOGLOBIN 29.7 pg (28-32); MEAN CORPUSCULAR VOLUME 90.1 fL (81-99); MONOCYTES # (AUTO) 0.7 (0.2-0.8); MONOCYTES % 8.7 % (4.4-11.3); NEUTROPHILS # (AUTO) 3.8 (2.1-6.9); NEUTROPHILS % 50.8 % (38.7-80.0); PLATELET COUNT 227 x10e3/uL (140-360); RED BLOOD COUNT 4.44 x10e6/uL (4.3-5.7); RED CELL DISTRIBUTION WIDTH 13.8 % (11.7-14.4); WHITE BLOOD COUNT 7.49 x10e3/uL (4.8-10.8)
[2024-04-10 05:58] LABS: ANION GAP 12.6 mmol/L (8-16); CALCIUM 8.6 mg/dL (8.4-10.2); CREATININE, SERUM 0.97 mg/dL (0.72-1.25); POTASSIUM 3.6 mmol/L (3.5-5.1)
[2024-04-10 08:00] VITALS: BP 114/84; PULSE 68; RESP 18; TEMP 97.6; O2SAT 99
[2024-04-10 08:36] VITALS: BP 136/84; PULSE 65; RESP 20; TEMP 98.6; O2SAT 99
== END 2024-04-10 11:11 | disposition home or self-care (01) ==
LOC: ER 11:19 → ERHOLD 13:29 → MED/SURG2 14:31
PROVIDERS: ADMIT Family Medicine; ATTEND Family Medicine
DX: K57.32 Diverticulitis of large intestine without perforation or abscess without bleeding (principal); I10 Essential (primary) hypertension; G40.909 Epilepsy, unspecified, not intractable, without status epilepticus; K21.00 Gastro-esophageal reflux disease with esophagitis, without bleeding; E78.5 Hyperlipidemia, unspecified; F98.8 Other specified behavioral and emotional disorders with onset usually occurring in childhood and adolescence; L71.9 Rosacea, unspecified; Z79.899 Other long term (current) drug therapy; Z79.82 Long term (current) use of aspirin
CPT/HCPCS: 36415 ×3; 74176; 80048; 80053 ×2; 81001; 83690; 85025 ×3; 99284; G0378 ×4; J1170 ×3; J1885 ×2; J2270 ×2; J2405 ×3; J2543 ×4; J7030 ×3